=== PATIENT | female | born 1945 | race Caucasian/White ===

== ENCOUNTER 2016-10-24 12:28 | Emergency (ER) | payer MEDICARE ==
[~2016-10-24] VITALS: Ht 167.6 cm; Wt 93.5 kg
[~2016-10-24 12:28] MED LIST: ASPI325T4 PO; BUPR8TAB SL; LISI-313 PO; LORA1TAB PO; OXYB5SYR2 PO; TRAZ300T15 PO; VENL225T PO
[2016-10-24 12:48] VITALS: Ht 167.6 cm; Wt 93.5 kg
[2016-10-24] MEDS ORDERED: HYDROmorphONE 1 MG/ML SYG IV STA (13:38)
[2016-10-24] MEDS ORDERED: ONDANSETRON INJ 8 MG in DEXTROSE 5% 50 ML IV STA (13:38)
[2016-10-24] MEDS ORDERED: ONDANSETRON 4 MG INJ ONE (13:46)
[2016-10-24] MEDS ORDERED: ONDANSETRON 4 MG INJ IV STA (13:50)
[2016-10-24 13:59] LABS: ADD SCAN DIFF NO
[2016-10-24 14:01] LABS: BASOPHILS % 0.6 % (0.0-2.0); EOSINOPHILS # 0.2 10^3/ul (0.0-0.5); EOSINOPHILS % 2.2 % (0.0-7.0); HEMATOCRIT 41.9 % (37.0-47.0); HEMOGLOBIN 12.8 g/dl (12.0-16.0); LYMPHOCYTES # 1.9 10^3/ul (0.8-2.9); LYMPHOCYTES % 27.4 % (15.0-51.0); MEAN CORPUSCULAR HGB CONC 30.5 g/dl (32.0-37.0); MEAN CORPUSCULAR VOLUME 91.7 fl (82.0-101.0); MEAN PLATELET VOLUME 9.3 fl (7.4-10.4); MONOCYTE # 0.6 10^3/ul (0.3-0.9); NEUTROPHIL # 4.1 10^3/ul (1.6-7.5); NEUTROPHILS % 60.7 % (39.0-77.0); PLATELET COUNT 297 10^3/UL (140-415); RED BLOOD COUNT 4.57 10^6/ul (4.20-5.40); RED CELL DISTRIBUTION WIDTH 14.4 % (11.5-14.5); WHITE BLOOD COUNT 6.8 10^3/ul (4.8-10.8)
[2016-10-24 14:04] LABS: ADD UMIC NO; UR ASCORBIC ACID NEGATIVE (NEGATIVE); UR BILIRUBIN (Dip) NEGATIVE (NEGATIVE); UR BLOOD (Dip) NEGATIVE (NEGATIVE); UR CLARITY SLIGHTLY CLOUDY (CLEAR); UR COLOR YELLOW (YELLOW); UR GLUCOSE (Dip) NEGATIVE (NEGATIVE); UR KETONES (Dip) NEGATIVE (NEGATIVE); UR LEUKOCYTE ESTERASE (Dip) NEGATIVE Leu/ul (NEGATIVE); UR NITRITE (Dip) NEGATIVE (NEGATIVE); UR RBC 2 /HPF (0-5); UR SPECIFIC GRAVITY (Dip) 1.019 (1.003-1.030); UR SQUAMOUS EPITHELIAL CELL FEW /HPF (FEW); UR TOTAL PROTEIN (Dip) NEGATIVE (NEGATIVE); UR UROBILINOGEN (Dip) NEGATIVE (NEGATIVE)
[2016-10-24 14:24] LABS: ALBUMIN 4.7 g/dl (3.3-4.9); ALBUMIN/GLOBULIN RATIO 1.62; CALCIUM 9.4 mg/dl (8.4-10.2); CREATININE 0.99 mg/dl (0.44-1.00); POTASSIUM 4.6 mmol/L (3.5-5.1); TOTAL PROTEIN 7.6 g/dl (6.1-8.1)
--- NOTE | 2016-10-24 15:13 | RADRPT ---
PROCEDURE: CT Abdomen and Pelvis without contrast. CLINICAL INDICATION: Right flank pain. TECHNIQUE: Multiple contiguous axial CT images of the abdomen and pelvis were obtained without the administration of intravenous contrast. Coronal and sagittal reconstructions were also performed. CTDIvol (mGy): 22.19; Total Exam DLP (mGy-cm): 1271.92. One or more of the following dose reduction techniques were utilized: - Automated exposure control. - Adjustment of the mA and/or kV according to patient size. - Use of iterative reconstruction technique. COMPARISON: None. FINDINGS: Limited imaging of the lower thorax is unremarkable. The liver and spleen are homogeneous in density. The liver is diffusely low in attenuation compatibl e with fatty infiltration. The liver measures approximately 15 HU in density. The gallbladder, pancr eas and adrenal glands are unremarkable. The kidneys are symmetric in size. There are no nephroureteral stones. There is no hydronephrosis o r abnormal perinephric inflammation. There is an 11 mm homogeneous partially exophytic hyperdense s tructure of the interpolar region of the left kidney which is favorable for a hyperdense cyst. The abdominal aorta is normal in caliber. Atherosclerotic calcification is present. There is no per iaortic / retroperitoneal lymphadenopathy. The stomach and small and large intestines are unremarkable. The appendix is not visualized. There are no focal inflammatory changes of the mesentery. There is no mesenteric lymphadenopathy. There is no ascites. There is a tiny fat containing umbilical hernia. The bladder is collapsed. The uterus is absent. The adnexa are unremarkable. There is no free pelv ic fluid. There is no pelvic sidewall or inguinal lymphadenopathy. Degenerative changes of the lumbar spine are present. Surgical changes compatible with L4 laminecto my are identified. Body wall soft tissues are unremarkable. IMPRESSION: No evidence of abdominopelvic mass, lymphadenopathy or acute inflammatory pathology. No evidence of nephroureterolithiasis, urinary tract obstruction or urinary tract inflammation. Fatty infiltration of the liver. Tiny hyperdense structure of the left kidney, favorable for a hyperdense cyst. Recommend short inte rval follow up with dedicated renal ultrasound to confirm cystic nature. RPTAT: HLST .Ana Lock MD, Date Time Electronically viewed and signed by .Ana Lock MD, MD on 10/24/2016 15:13 .T/
[2016-10-24] MEDS ORDERED: TRAM50TA2 PO (15:51)
[2016-10-24] MEDS ORDERED: POLY17PO6 PO (15:51)
--- NOTE | 2016-10-24 15:56 | ERD ---
ER Documentation Chief Complaint Date/Time DATE: 10/24/16 TIME: 15:53 Chief Complaint Complains of constipation since HPI This is a 71-year-old female complains of constipation for the past 4 days. The patient states she has been having some right lower quadrant pain daily for 2 months. She states the pain is sharp and crampy at times and she feels like she might have a kidney stone. The patient has had her appendix removed already. Patient states the pain is not worse with eating or urinating. No hematuria no vomiting diarrhea. Denies any fever. Has no anorexia or weight loss. ROS All systems reviewed and are negative except as per history of present illness. Medications Home Meds Active Scripts Tramadol HCl (Tramadol HCl) 50 Mg Tablet, 50 MG PO Q8H Y for PAIN, #20 TAB Prov:SOPHIE BOWLING DO 10/24/16 Polyethylene Glycol* (Miralax*) 17 Gm Powd.pack, 17 GM PO DAILY, #7 Prov:SOPHIE BOWLING DO 10/24/16 Reported Medications Lorazepam* (Lorazepam*) 1 Mg Tablet, 1 MG PO BID Y for ANXIETY, #30 TAB 01/29/16 Buprenorphine Hcl (BUPRENORPHINE HCL) 8 Mg Tab.subl, 8 MG SL TID Y for ANXIETY, TAB.SL 01/29/16 Trazodone Hcl* (Trazodone Hcl*) 300 Mg Tablet, 300 MG PO QHS, #30 TAB 01/29/16 Aspirin* (Aspirin*) 325 Mg Tablet, 81 MG PO DAILY, TAB 01/29/16 Lisinopril* (Lisinopril*) 5 Mg Tablet, 5 MG PO DAILY, #30 TAB 01/29/16 Venlafaxine Hcl* (Venlafaxine Hcl ER*) 225 Mg Tab.er.24, 375 MG PO DAILY Y for ANXIETY, TAB.SA 01/29/16 Oxybutynin Chloride* (Oxybutynin Chloride*) 5 Mg/5 Ml Syrup, 5 MG PO QHS Y for ANXIETY, ML 01/29/16 Allergies Allergies: Coded Allergies: No Known Allergy (Unverified , 01/29/16) PMhx/Soc History of Surgery: Yes (decompression laminectomy L4-5, decompression L4-5 nerve root) Anesthesia Reaction: No Hx Neurological Disorder: No Hx Respiratory Disorders: Yes Hx Cardiac Disorders: No Hx Psychiatric Problems: Yes (ON ANTI-DEPRESSANT) Hx Miscellaneous Medical Probl: Yes (radiculopathy, fibromyalgia, HTN, hyperlipidemia) Hx Alcohol Use: No Hx Substance Use: No Hx Tobacco Use: Yes Smoking Status: Never smoker FmHx Family History: No coronary disease Physical Exam Vitals Vital Signs Date Time Temp Pulse Resp B/P Pulse Ox O2 Delivery O2 Flow Rate FiO2 10/24/16 12:48 99.0 76 20 134/63 93 Physical Exam Const: Well-developed, well-nourished Head: Atraumatic, normocephalic Eyes: Normal Conjunctiva, PERRLA, EOMI, normal sclera, no nystagmus ENT: Normal External Ears, Nose and Mouth, moist mucus membranes. Neck: Full range of motion. No meningismus, no lymphadenopathy. Resp: Clear to auscultation bilaterally, no wheezing, rhonchi, rales Cardio: Regular rate and rhythm, no murmurs, S1 S2 present Abd: Soft, mild to moderate right lower quadrant tenderness, non distended. Normal bowel sounds, no guarding or rebound, no pulsitile abdominal masses or bruits Skin: No petechiae or rashes, no ecchymosis , no maculopapular rash Back: No midline or flank tenderness Ext: No cyanosis, or edema, FROM x 4, normal inspection, neurovascularly intact x 4 Neur: Awake and alert, STR 5/5 x 4, sensation intact x 4, no focal findings, cerebellum intact Psych: Normal Mood and Affect Result Diagram: 10/24/16 1302 10/24/16 1302 Results 24 hrs Laboratory Tests Test 10/24/16 13:02 White Blood Count 6.810^3/ul Red Blood Count 4.5710^6/ul Hemoglobin 12.8g/dl Hematocrit 41.9% Mean Corpuscular Volume 91.7fl Mean Corpuscular Hemoglobin 28.0pg Mean Corpuscular Hemoglobin Concent 30.5g/dl Red Cell Distribution Width 14.4% Platelet Count 00443^3/UL Mean Platelet Volume 9.3fl Neutrophils % 60.7% Lymphocytes % 27.4% Monocytes % 9.0% Eosinophils % 2.2% Basophils % 0.6% Nucleated Red Blood Cells % 0.0/100WBC Neutrophils # 4.110^3/ul Lymphocytes # 1.910^3/ul Monocytes # 0.610^3/ul Eosinophils # 0.210^3/ul Basophils # 0.010^3/ul Nucleated Red Blood Cells # 0.010^3/ul Urine Color YELLOW Urine Clarity SLIGHTLY CLOUDY Urine pH 6.0 Urine Specific [place] 1.019 Urine Ketones NEGATIVEmg/dL Urine Nitrite NEGATIVEmg/dL Urine Bilirubin NEGATIVEmg/dL Urine Urobilinogen NEGATIVEmg/dL Urine Leukocyte Esterase NEGATIVELeu/ul Urine Microscopic RBC 2/HPF Urine Microscopic WBC 2/HPF Urine Squamous Epithelial Cells FEW/HPF Urine Hemoglobin NEGATIVEmg/dL Urine Glucose NEGATIVEmg/dL Urine Total Protein NEGATIVEmg/dl Sodium Level 139mmol/L Potassium Level 4.6mmol/L Chloride Level 100mmol/L Carbon Dioxide Level 31mmol/L Anion Gap 13 Blood Urea Nitrogen 15mg/dl Creatinine 0.99mg/dl Glucose Level 90mg/dl Calcium Level 9.4mg/dl Total Bilirubin 0.0mg/dl Direct Bilirubin 0.00mg/dl Indirect Bilirubin 0.0mg/dl Aspartate Amino Transf (AST/SGOT) 30IU/L Alanine Aminotransferase (ALT/SGPT) 41IU/L Alkaline Phosphatase 75IU/L Total Protein 7.6g/dl Albumin 4.7g/dl Globulin 2.90g/dl Albumin/Globulin Ratio 1.62 Lipase 38U/L Current Medications Medications (Trade) Dose Ordered Sig/Jordan Route PRN Reason Start Time Stop Time Status Last Admin Dose Admin Hydromorphone HCl 1 mg 1 mg ONCE STAT IV 10/24/16 13:38 10/24/16 13:40 DC 10/24/16 13:47 Ondansetron HCl/ Dextrose (Zofran Inj/D5W) 54 ml @ 200 mls/hr ONCE STAT IV 10/24/16 13:38 10/24/16 13:54 DC Ondansetron HCl (Zofran Inj) 4 mg STK-MED ONCE .ROUTE 10/24/16 13:46 10/24/16 13:47 DC Ondansetron HCl (Zofran Inj) 4 mg ONCE STAT IV 10/24/16 13:50 10/24/16 13:57 DC 10/24/16 13:55 Procedures/MDM PROCEDURE: CT Abdomen and Pelvis without contrast. CLINICAL INDICATION: Right flank pain. TECHNIQUE: Multiple contiguous axial CT images of the abdomen and pelvis were obtained without the administration of intravenous contrast. Coronal and sagittal reconstructions were also performed. CTDIvol (mGy): 22.19; Total Exam DLP (mGy-cm): 1271.92. One or more of the following dose reduction techniques were utilized: - Automated exposure control. - Adjustment of the mA and/or kV according to patient size. - Use of iterative reconstruction technique. COMPARISON: None. FINDINGS: Limited imaging of the lower thorax is unremarkable. The liver and spleen are homogeneous in density. The liver is diffusely low in attenuation compatible with fatty infiltration. The liver measures approximately 15 HU in density. The gallbladder, pancreas and adrenal glands are unremarkable. The kidneys are symmetric in size. There are no nephroureteral stones. There is no hydronephrosis or abnormal perinephric inflammation. There is an 11 mm homogeneous partially exophytic hyperdense structure of the interpolar region of the left kidney which is favorable for a hyperdense cyst. The abdominal aorta is normal in caliber. Atherosclerotic calcification is present. There is no periaortic / retroperitoneal lymphadenopathy. The stomach and small and large intestines are unremarkable. The appendix is not visualized. There are no focal inflammatory changes of the mesentery. There is no mesenteric lymphadenopathy. There is no ascites. There is a tiny fat containing umbilical hernia. The bladder is collapsed. The uterus is absent. The adnexa are unremarkable. There is no free pelvic fluid. There is no pelvic sidewall or inguinal lymphadenopathy. Degenerative changes of the lumbar spine are present. Surgical changes compatible with L4 laminectomy are identified. Body wall soft tissues are unremarkable. IMPRESSION: No evidence of abdominopelvic mass, lymphadenopathy or acute inflammatory pathology. No evidence of nephroureterolithiasis, urinary tract obstruction or urinary tract inflammation. Fatty infiltration of the liver. Tiny hyperdense structure of the left kidney, favorable for a hyperdense cyst. Recommend short interval follow up with dedicated renal ultrasound to confirm cystic nature. RPTAT: HLST .Ana Lock MD, MD Date Time Electronically viewed and signed by .Ana Lock MD, on 10/24/2016 15:13 .T/ CC: SOPHIE BOWLING DO No pathology seen on CT scan of any significance requiring hospitalization or surgical intervention at this time. Will treat for constipation and see if it alleviates her symptoms. The patient was advised to get a colonoscopy as well as soon as possible. Departure Diagnosis: Primary Impression: Right lower quadrant pain Additional Impression: Constipation Constipation type: unspecified constipation type Qualified Code: K59.00 - Constipation, unspecified constipation type Condition: Stable Patient Instructions: Constipation (Adult), Abdominal Pain, Unkown Cause, (Male ) SOPHIE BOWLING DO Oct 24, 2016 15:56
== END 2016-10-24 16:08 | disposition home or self-care (01) ==
LOC: FTE 12:28
DX: R10.31 Right lower quadrant pain (principal); I10 Essential (primary) hypertension; Z79.82 Long term (current) use of aspirin; Z87.891 Personal history of nicotine dependence
CPT/HCPCS: 74176; 80053; 81001; 83690; 85025; J1170; J2405; 36415; 81003; 96374; 96375

== ENCOUNTER → 2018-06-20 | Outpatient (CLI) | payer MEDICARE ==
[~2018-06-20] MED LIST changes: +ASPI325T30 PO; -ASPI325T4 PO; +POLY17PO6 PO; +TRAM50TA2 PO
== END | disposition home or self-care (01) ==
LOC: LAB 14:21
PROVIDERS: ATTEND Internal Medicine
DX: Z01.818 Encounter for other preprocedural examination (principal); K74.60 Unspecified cirrhosis of liver; D01.5 Carcinoma in situ of liver, gallbladder and bile ducts; K75.81 Nonalcoholic steatohepatitis (NASH)
CPT/HCPCS: 71046

== ENCOUNTER → 2018-11-27 | Outpatient (CLI) | payer MEDICARE, OTHER | END | disposition home or self-care (01) | LOC: RAD 11:00 | PROVIDERS: ATTEND Internal Medicine | DX: Z01.818 Encounter for other preprocedural examination (principal) | CPT/HCPCS: 71046 ==